=== PATIENT | female | born 1955 | race Caucasian/White ===

== ENCOUNTER 2019-05-19 09:37 | Emergency (ER) | payer MEDICARE, OTHER ==
[2019-05-19 09:44] VITALS: BP 126/58
[2019-05-19] MEDS ORDERED: NORMAL SALINE 1000 ML 1,000 ML IV ONE (10:10)
[2019-05-19] MEDS ORDERED: KETOROLAC TROMETHAMINE INJ/PF 30 MG/1 ML SDV IV ONE ×2 (10:10→13:59)
--- NOTE | 2019-05-19 10:11 | ER Document Report ---
ED Medical Screen (RME) - General Chief Complaint: Headache >24 hrs old Stated Complaint: HEAD PROBLEM Time Seen by Provider: 05/19/19 10:07 Primary Care Provider: BRENNA CADENA MD [Primary Care Provider] - Follow up as needed Information source: Patient Notes: Patient presents complaining of right-sided headache pain for the past 3 days. Patient states headache pain is stabbing in nature. Patient states that this feels different than her usual migraines. Patient denies any head injury or fever. No nausea or vomiting. Patient took Tylenol this morning without relief of her symptoms. I have greeted and performed a rapid initial assessment of this patient. A comprehensive ED assessment and evaluation of the patient, analysis of test results and completion of the medical decision making process will be conducted by additional ED providers. TRAVEL OUTSIDE OF THE [place] IN LAST 30 DAYS: No - Related Data Allergies/Adverse Reactions: No Known Allergies Allergy (Unverified 05/19/19 10:02) Past Medical History - Social History Chew tobacco use (# tins/day): No Frequency of alcohol use: None Drug Abuse: None Physical Exam - Vital signs Vitals: Temp Pulse Resp BP Pulse Ox 97.9 F 88 16 126/58 H 100 05/19/19 09:43 05/19/19 09:43 05/19/19 09:43 05/19/19 09:43 05/19/19 09:43 - Neurological Neuro grossly intact: Yes Cognition: Normal Scott Coma Scale Eye Opening: Spontaneous [place] Coma Scale Verbal: Oriented Scott Coma Scale Motor: Obeys Commands [place] Coma Scale Total: 15 Course - Vital Signs Vital signs: Temp Pulse Resp BP Pulse Ox 97.9 F 88 16 126/58 H 100 05/19/19 09:43 05/19/19 09:43 05/19/19 09:43 05/19/19 09:43 05/19/19 09:43 Doctor's Discharge - Discharge Referrals: BRENNA CADENA MD [Primary Care Provider] - Follow up as needed
--- NOTE | 2019-05-19 11:09 | ER Document Report ---
ED Headache - General Chief Complaint: Headache >24 hrs old Stated Complaint: HEAD PROBLEM Time Seen by Provider: 05/19/19 10:07 Primary Care Provider: BRENNA TAO MD [EMERITUS] - Follow up as needed Notes: HPI: 64-year-old female who presents today stating the onset Sunday morning, 3 days ago some right-sided intermittent headaches. She states they last around 5 to 10 seconds. No aggravating relieving factors. No blurry vision or double vision. No weakness or numbness. No vomiting. No fevers. No neck pain. No trauma. Patient is not taking any blood thinning medications. Patient states she is a long history of similar headaches. She is to follow the neurologist Dr. Tao who is currently retired. ROS: See HPI All other review of systems reviewed and otherwise negative Reviewed vital signs and nursing note as charted by RN. PHYSICAL EXAM: CONSTITUTIONAL: Alert and oriented and responds appropriately to questions. Well-appearing; well-nourished HEAD: Normocephalic; atraumatic EYES: PERRL; full extraocular range of motion ENT: Normal nose; no rhinorrhea; no temporal erythema or tenderness; moist mucous membranes; pharynx without lesions noted NECK: Supple without meningismus; non-tender; no cervical lymphadenopathy, no masses CARD: Regular rate and rhythm; no murmurs; symmetric distal pulses RESP: Normal chest excursion without splinting or tachypnea; breath sounds clear and equal bilaterally EXT: Normal ROM in all joints; non-tender to palpation; no edema SKIN: No acute lesions noted NEURO: CN 2-12 intact; 5/5 bilateral upper and lower extremity strength with sensation intact to light touch PSYCH: The patient's mood and manner are appropriate. Grooming and personal hygiene are appropriate. TRAVEL OUTSIDE OF THE [place] IN LAST 30 DAYS: No - Related Data Allergies/Adverse Reactions: No Known Allergies Allergy (Unverified 05/19/19 10:02) Past Medical History - General Information source: Patient - Social History Smoking Status: Never Smoker Chew tobacco use (# tins/day): No Frequency of alcohol use: None Drug Abuse: None Family History: Reviewed & Not Pertinent Patient has suicidal ideation: No Patient has homicidal ideation: No Neurological Medical History: Reports: Hx Migraine Physical Exam - Vital signs Vitals: Temp Pulse Resp BP Pulse Ox 97.9 F 88 16 126/58 H 100 02/10/20 09:43 05/19/19 09:43 05/19/19 09:43 05/19/19 09:43 05/19/19 09:43 Course - Re-evaluation Re-evalutation: 05/19/19 11:08 Given the history and physical examination with no eye complaints, no blurry or double vision, no loss of vision, no temporal erythema or tenderness, full extraocular range of motion of the eyes, no focal neurologic deficits, I do bel ieve acute angle-closure glaucoma and temporal arteritis to be extremely unlikely. Given the intermittent 5-2nd nature without any tearing of the eyes, I am unsure whether or not this is a general migraine or trigeminal neuralgia- like symptoms. Cluster headaches are unusual with a lack of any tearing of the eyes. Patient does state a history of this in the past. I will attempt pain medications as well as a CT scan of the head given the patient's age with no recent imaging. 05/19/19 13:59 Patient's pain is only very mildly improved. CT unremarkable. I will provide a dose of Toradol and place the patient on some oxygen for the possibility of a cluster headache. Given the intermittent nature every 10 minutes, trigeminal neuralgia is also in the differential. 05/19/19 15:07 Patient's headache has mildly improved. It is still only intermittent lasting 5 to 10 seconds. No radiation still on the face. Still no neck pain no blurry vision. Azeem-Pen pressure was normal at 14. Patient actually states now she has a neurologist, . She states that she will follow-up with him. In the interim I will provide gabapentin as I believe trigeminal neuralgia is in the differential. - Vital Signs Vital signs: Temp Pulse Resp BP Pulse Ox 97.9 F 88 16 126/58 H 100 05/19/19 09:43 05/19/19 09:43 05/19/19 09:43 05/19/19 09:43 05/19/19 09:43 Discharge - Discharge Clinical Impression: Headache Qualifiers: Headache type: unspecified Headache chronicity pattern: acute headache Intractability: not intractable Qualified Code(s): R51 - Headache Condition: Good Disposition: HOME, SELF-CARE Additional Instructions: Come back immediately with any increased pain, change in location or quality of pain, blurry vision, fevers or vomiting, or any other acute problems. Please follow-up with the primary care physician and neurologist as discussed. Prescriptions: Gabapentin [Neurontin 300 mg Capsule] 300 mg PO QHS #30 cap Hydrocodone/Acetaminophen [Fontana 5-325 mg Tablet] 1 tab PO Q8 #10 tablet Referrals: BRENNA TAO MD [EMERITUS] - Follow up as needed
--- NOTE | 2019-05-19 11:26 | RADIOLOGY REPORT (SQ) ---
EXAM DESCRIPTION: CT HEAD WITHOUT COMPLETED DATE/TIME: 05/19/2019 11:08 am REASON FOR STUDY: 39; right sided headache COMPARISON: None. TECHNIQUE: Axial images acquired through the brain without intravenous contrast. Images reviewed wi th bone, brain and subdural windows. Additional sagittal and coronal reconstructions were generated. Images stored on PACS. All CT scanners at this facility use dose modulation, iterative reconstruction, and/or weight based d osing when appropriate to reduce radiation dose to as low as reasonably achievable (ALARA). [facility]: Dose Right [facility]: CareDose [facility]: Dose Right [facility]: Teradose 4D [facility]: [id number] RADIATION DOSE: CT Rad equipment meets quality standard of care and radiation dose reduction techniq ues were employed. CTDIvol: 53.2 mGy. DLP: 937 mGy-cm. LIMITATIONS: None. FINDINGS: There is no acute intracranial hemorrhage, vascular territorial infarct, extra-axial fluid collection, mass effect or midline shift. There is no effacement of the cerebral sulci or basal sub arachnoid cisterns. The oconnor-white matter differentiation is preserved. The caliber the ventricles is concordant with the degree of sulcation. The orbits and globes are intact. The mucosal lining of the right maxillary sinus is mildly thickene d; there is no paranasal sinus air-fluid level. There is no calvarial fracture. IMPRESSION: No acute intracranial abnormality. EVIDENCE OF ACUTE STROKE: NO. COMMENT: Quality ID # [id number]: Final reports with documentation of one or more dose reduction techniques (e.g., Automated exposure control, adjustment of the mA and/or kV according to patient size, use of iterative reconstruction technique) TECHNICAL DOCUMENTATION: JOB ID: [id number] 2010 [employer]- All Rights Reserved Reading location - IP/workstation name: [email or web address]
[2019-05-19] MEDS ORDERED: MORPHINE SULFATE 10 MG/ML INJ IV ONE (11:51)
[2019-05-19] MEDS ORDERED: PROMETHAZINE HCL INJ 25 MG/1 ML VIAL IV ONE (11:51)
== END 2019-05-19 15:47 | disposition home or self-care (01) ==
LOC: ER 09:37
DX: R51 Headache (principal)
CPT/HCPCS: 99284; 96361; 96374; 96375; 70450; J1885; J2270; J2550; J7030